=== PATIENT | male | born 2005 | race Caucasian/White ===

== ENCOUNTER 2025-02-07 18:02 | Emergency (ER) | payer MEDICAID ==
[~2025-02-07] VITALS: Ht 167.6 cm; Wt 82.0 kg
[2025-02-07 18:06] VITALS: TEMP 36.7; O2SAT 99
[2025-02-07] MEDS: IBUPROFEN 600MG TABLET PO ONE (21:33)
[2025-02-07] MEDS ORDERED: IBUP-1455 MT (21:40)
[2025-02-07] MEDS ORDERED: OFLO5DRO4 RIGHT EAR (21:40)
[2025-02-07 22:25] VITALS: BP 142/62; PULSE 90; RESP 14; O2SAT 100
== END 2025-02-07 22:30 | disposition home or self-care (01) ==
LOC: ER 18:02
DX: H60.91 Unspecified otitis externa, right ear (principal)
CPT/HCPCS: 99283